=== PATIENT | male | born 1980 | race Caucasian/White ===

== ENCOUNTER 2024-07-31 21:56 | Emergency (ER) | payer MEDICAID ==
[~2024-07-31] VITALS: Ht 172.7 cm; Wt 79.4 kg
[2024-07-31] MEDS ORDERED: HYDROCODONE/APAP 5/325MG TABLET ONE (23:33)
[2024-07-31] MEDS ORDERED: TDAP [DIPH/PERTUSSIS/TET] 0.5 ML VIAL IM ONE (23:34)
[2024-07-31] MEDS: TDAP [DIPH/PERTUSSIS/TET] 0.5 ML VIAL IM ONE (23:40)
[2024-07-31] MEDS: HYDROCODONE/APAP 5/325MG TABLET PO ONE (23:41)
[2024-08-01] MEDS ORDERED: HYDROCODONE/APAP 5/325MG TABLET ONE (02:17)
[2024-08-01] MEDS: HYDROCODONE/APAP 5/325MG TABLET PO ONE (02:21)
[2024-08-01] MEDS ORDERED: IBUP-1490 PO (02:41)
[2024-08-01 02:57] VITALS: BP 140/96; TEMP 98.5; O2SAT 98
== END 2024-08-01 02:58 | disposition home or self-care (01) ==
LOC: ER 22:05
DX: S20.219A Contusion of unspecified front wall of thorax, initial encounter (principal); S40.011A Contusion of right shoulder, initial encounter; S00.01XA Abrasion of scalp, initial encounter; W03.XXXA Other fall on same level due to collision with another person, initial encounter; Y93.67 Activity, basketball; Y92.39 Other specified sports and athletic area as the place of occurrence of the external cause; Y99.8 Other external cause status
CPT/HCPCS: 70450-TC; 71250-TC; 72125-TC; 73030-TC; 90715